=== PATIENT | female | born 1975 | race Caucasian/White ===

== ENCOUNTER → 2016-12-04 | Outpatient (CLI) | payer BC ==
--- NOTE | 2016-12-04 08:50 | DI ---
Indication: ITS.REASON: R10.31 RLQ ABD PAIN; R53.83 FATIGUE PROCEDURE: US ABDOMEN COMPLETE: Encounter: Initial Comparison: None Technique: Grayscale and color Doppler sonographic imaging of the abdomen was performed. Findings: Hepatic parenchyma is homogeneous without evidence for focal mass. The gallbladder is normal. There is no wall thickening, pericholecystic fluid, sonographic Shipley's sign or cholelithiasis. Both the intra and extrahepatic biliary system are of normal caliber with the common duct measuring 4 mm in dimension. Visualized portions of the head and body of the pancreas are unremarkable. Both kidneys are present without collecting system dilatation. The right measures 10.5 cm in length and left measures 10.8 cm. The spleen is unremarkable. The visualized portions of the aorta and IVC are unremarkable. No free fluid. Impression: Normal abdominal sonogram. .
== END ==
LOC: IMA 07:30
PROVIDERS: ATTEND Family Medicine
DX: R10.31 Right lower quadrant pain (principal); R53.83 Other fatigue